=== PATIENT | male | born 1930 | race Caucasian/White ===

== ENCOUNTER 2016-08-30 10:19 | Emergency (ER) | payer MEDICARE, OTHER ==
[~2016-08-30] VITALS: Ht 177.8 cm; Wt 97.7 kg
[~2016-08-30 10:19] MED LIST: ACET-97 PO; AMLO5TAB2 PO; ATOR20TA65 PO; GABA-502 PO; METF500T4 PO; MULT-1018 PO; MULT-426 PO; OMEG-123 PO; OMEP-113 PO; SERT25TA6 PO; TIOT18CA3 IH; [UNRECOGNIZED DRUG - CODE] PO
[2016-08-30 10:35] VITALS: BP 120/64; PULSE 64; RESP 18; O2SAT 95
--- NOTE | 2016-08-30 11:27 | ED.REPORT ---
HPI-Headache Date of Service Aug 30, 2016 ED Provider: Bull Srinivasan MD Patient is an 85 year old male with a history of MO and COPD who presents to the ED complaining of a headache onset a week ago. He reports that the pain has been waxing and waning and it radiates into his neck and shoulders. Patient also has numbness in his left arm in the mornings. The patient states that he has not had this kind of headache before. He denies changes in vision or speech , fever, and dysphagia. Patient is currently taking ASA and Plavix daily. The patient has not had any falls or traumas recently. Nursing Notes Stated Complaint: BAD HEADACHES Chief Complaint: Headache Nursing Notes Reviewed: Yes Allergies: Coded Allergies: lidocaine HCl (Verified Allergy, Severe, Cardiac Arrest, 06/16/15) Iodinated Contrast Media - Oral and (Verified Allergy, Mild, Rash,Itching, , 06/16/15) Had itching after CT scan with IV contrast. Benadryl administered by radiologist. Scheduled Amlodipine (Amlodipine) 5 Mg Tablet 10 MG PO DAILY Atorvastatin Calcium (Atorvastatin Calcium) 20 Mg Tablet 20 MG PO DAILY Gabapentin (Gabapentin) 300 Mg Capsule 300 MG PO TID Metformin (Metformin) 500 Mg Tablet 500 MG PO TIDWM Multivitamin (Multi Vitamin Daily) 1 Each Tablet 1 EACH PO DAILY Multivitamin with Minerals (One Daily 50 Plus) 1 Each Tablet 1 EACH PO DAILY Omeprazole Magnesium (Omeprazole) 20 Mg Capsule.dr 20 MG PO DAILY Sertraline HCl (Sertraline) 25 Mg Tablet 25 MG PO DAILY Tiotropium [place] (Spiriva) 18 Mcg Cap.w.dev 18 MCG IH DAILY Scheduled PRN Acetaminophen (Acetaminophen) 500 Mg Tablet 500 MG PO PRN PRN PRN For Pain Miscellaneous Medications Aspirin ([place] Chewable) 81 Mg Tab.chew 81 MG PO Wy[place]-3 Fatty Acids/Dha/Epa ([place]ga-3 Softgel) 500 Mg-270 Mg-135 Mg Capsule 1 EACH PO General Time Seen by MD: 11:26 Chief Complaint Headache Hx Obtained From: Patient Arrived By: Walk-in Sudden in Onset?: No Onset Occurred: 1 week ago Recent Healthcare: Recent doctor visit Past Medical History Past Medical History Sleep apnea Vertigo Normal myocardial perfusion scan 2010 2011 ECHO normal LVEF No valvular heart disease Reportedly a MO in mid - See H&P 06/20/2010 Reports: Coronary artery disease, Diabetes mellitus, Hypertension, Transient ischemic attack Past Surgical History Bowel resection Shoulder repair following crush injury Bilateral knee Carpal tunnel Eyes Family History noncontributory Smoking History Former Smoker Social History Alcohol Use: "Social" Drug Use: Denies drug use Other Social History: Lives alone, Local resident Ambulatory Status Independent Review of Systems Constitutional: Denies: Fever GI: Denies: Dysphagia Neurologic: Reports: Headache, Numbness, Denies: Slurred speech, Unable to speak, Vision change Complete sys rev & neg: except as marked. Physical Exam Initial Vital Signs Vital Signs (First) Date Time Temp Pulse Resp B/P Pulse Ox O2 Delivery O2 Flow Rate FiO2 08/30/16 10:35 36.6 64 18 120/64 95 Room Air Initial VS: Reviewed General/Constitutional: Awake, Alert, No acute distress Head / Eyes: Normocephalic, PERRL, EOMI Neck: Supple, Full range of motion, Non-tender Neurologic: Oriented X3, Speech NL, No motor deficits, No sensory deficits, CN II - XII intact Strength 5/5 all 4 extremities. ENT: Airway patent, Mucous membranes moist Respiratory / Chest: Atraumatic, Breath sounds NL, Breath sounds = bilat, No respiratory distress Cardiovascular: Heart rate NL, Regular rhythm, Heart sounds NL Abdomen: Soft, Non-tender Skin: Atraumatic, Color NL, No rash, Warm, Dry Psychiatric: Affect NL, Mood NL Interpretation & Diagnostics CT Head Interpretation IMPRESSION: 1. No acute intracranial abnormality. 2. Mild cerebral volume loss and chronic white matter small vessel ischemic changes. Dictated by: Fred Torres M.D. on 08/30/2016 at 12:30 Approved by: Fred Torres M.D. on 08/30/2016 at 12:31 Interpretation / Wet Read by: Interpret - Radiologist Re-Eval/Medical Decision Med Decision/Clinical Course 85-year-old male not on blood thinners presenting of right-sided headache 5 days. No neurological deficits. CT brain no acute pathology. Pain resolved with Toradol. Patient stable for discharge home with follow-up with primary doctor in several days. Return precautions given. Source of Hx: Old records Re-Evaluation/Progress : Time of Eval: 13:16 Re-Evaluation/Progress Note: Rechecked patient. Discussed CT results and plan for discharge. The patient understands and agrees to the plan for discharge. All questions were addressed. Counseled Regarding: Diagnosis, Lab results, Need for follow-up, When/why to return to ED Discharge & Departure Impression: Primary Impression: Headache Disposition: Home Discharge Condition All VS Reviewed: Yes Condition: Stable Patient Instructions: Acute Headache (ED) Additional Instructions: Your CT results were normal. Follow up with your primary care provider next week. Please return to the emergency department if you develop any new or worsening symptoms including nausea, vomiting, weakness, change in vision, lightheadedness, difficulty swallowing or speaking. Referrals: Jessee Magdaleno DO (PCP) Scribe Attestation Portions of this note were transcribed by Diana Hernandez and Alyx Anthony. I, Dr. Lowery personally performed the history, physical exam and medical decision-making; I reviewed and confirmed the accuracy of the information in the transcribed note. Signed by: Diana Hernandez and Zonia Theodore, and [id number]. copies to: Jessee Magdaleno Ben M MD Aug 30, 2016 11:26 Constance Hernandez Aug 30, 2016 11:36 ALYX ANTHONY Aug 30, 2016 12:18
--- NOTE | 2016-08-30 12:32 | DRSVH ---
PROCEDURE: CT BRAIN WITHOUT CONTRAST ([id number]) INDICATIONS: headache TECHNIQUE: Noncontrast 4.5 mm thick angled axial sections acquired from the foramen magnum to the vertex, with c oronal reformats. COMPARISON: [facility], CT, BRAIN W/O CONTRAST, 01/18/2011, 15:54. FINDINGS: Image quality: Excellent. CSF spaces: Basal cisterns are patent. No extra-axial fluid collections. The ventricles are symmet vignesh in size and shape. There is mild cerebral volume loss, with resultant ventricular and sulcal pro minence. Brain: No intracranial hemorrhage, mass, or mass effect. There are subcortical, periventricular and deep white matter hypodensities consistent with mild chronic small vessel ischemic changes. There i s intracranial internal carotid artery atherosclerosis. Skull and face: Calvarium and visualized facial bones appear intact, without suspicious lesions. Sinuses: Visualized sinuses demonstrate mild mucosal thickening within the ethmoid and right maxilla ry sinuses. Mastoid air cells are clear. IMPRESSION: 1. No acute intracranial abnormality. 2. Mild cerebral volume loss and chronic white matter small vessel ischemic changes. Dictated by: Fred Torres M.D. on 08/30/2016 at 12:30 Approved by: Fred Torres M.D. on 08/30/2016 at 12:31
[2016-08-30 13:32] VITALS: BP 118/64; PULSE 61; RESP 20; O2SAT 97
== END 2016-08-30 13:20 | disposition home or self-care (01) ==
LOC: SED 10:19
DX: R51 Headache (principal); R20.0 Anesthesia of skin; I11.9 Hypertensive heart disease without heart failure; I25.10 Atherosclerotic heart disease of native coronary artery without angina pectoris; E11.9 Type 2 diabetes mellitus without complications; Z87.891 Personal history of nicotine dependence; Z79.84 Long term (current) use of oral hypoglycemic drugs; Z88.8 Allergy status to other drugs, medicaments and biological substances; Z91.041 Radiographic dye allergy status
CPT/HCPCS: 70450; 96372; 99284; J1885